=== PATIENT | male | born 2000 | race Caucasian/White ===

== ENCOUNTER 2024-11-19 11:49 | Emergency (ER) | payer SELFPAY ==
[~2024-11-19] VITALS: Ht 170.2 cm; Wt 104.3 kg
[2024-11-19 12:03] VITALS: O2SAT 100
[2024-11-19 12:24] VITALS: TEMP 36.8; O2SAT 100
[2024-11-19 13:08] LABS: BASOPHILS % 0.3 % (0.0-2.0); EOSINOPHILS % 0.1 % (0.0-5.0); HEMATOCRIT. 46.8 % (42.0-52.0); HEMOGLOBIN. 15.7 g/dL (14.0-18.0); LYMPHOCYTES % 11.6 % (20.0-50.0); MEAN CORPUSCULAR HEMOGLOBIN 30.9 pg (28.0-32.0); MEAN CORPUSCULAR HGB CONC 33.6 g/dL (31.0-37.0); MEAN CORPUSCULAR VOLUME 91.8 fL (80.0-94.0); MEAN PLATELET VOLUME 7.7 fl (7.4-10.4); MONOCYTES % 4.1 % (2.0-8.0); NEUTROPHILS % 83.9 % (40.0-76.0); PLATELET 319 x1000/uL (130-400); WHITE BLOOD COUNT 9.7 x1000/uL (4.5-11.0)
[2024-11-19 13:15] LABS: CHLORIDE 106 mEq/L (98-107); SODIUM 141 mEq/L (136-145)
[2024-11-19 13:16] LABS: CARBON DIOXIDE 22 mEq/L (21-32)
[2024-11-19 13:17] LABS: CALCIUM 10.1 mg/dL (8.7-10.4)
[2024-11-19 13:21] LABS: CREATININE 0.9 mg/dL (0.6-1.3); GLUCOSE 100 mg/dL (70-105); UREA NITROGEN BLOOD 7 mg/dL (9-23)
[2024-11-19 14:35] LABS: ALANINE AMINOTRANSFERASE 38 IU/L (10-49); ALBUMIN 5.3 g/dL (3.2-4.8); ASPARTATE AMINOTRANSFERASE 24 IU/L (<34); BILIRUBIN DIRECT 0.5 mg/dL (<=3.0); BILIRUBIN TOTAL 2.8 mg/dL (0.1-1.0); PROTEIN TOTAL 8.4 g/dL (6.0-8.3)
[2024-11-19] MEDS ORDERED: IBUP-2029 MT (15:38)
[2024-11-19 15:50] VITALS: BP 132/98; PULSE 68; RESP 16
[2024-11-19] MEDS: IBUPROFEN 600MG TABLET PO ONE (15:50)
[2024-11-19] MEDS: CYCLOBENZAPRINE 10MG TABLET PO STA (15:50)
== END 2024-11-19 17:59 | disposition home or self-care (01) ==
LOC: ER 11:49
DX: S39.011A Strain of muscle, fascia and tendon of abdomen, initial encounter (principal); R10.32 Left lower quadrant pain; X58.XXXA Exposure to other specified factors, initial encounter; Y93.89 Activity, other specified; Y92.89 Other specified places as the place of occurrence of the external cause; Y99.8 Other external cause status
CPT/HCPCS: 36415; 74176; 80048; 80076; 85025; 99284